=== PATIENT | male | born 1985 | race Hispanic/Latino ===

== ENCOUNTER 2018-03-31 10:09 | Inpatient (IN) | payer MEDICAID, OTHER ==
[2018-03-31 10:19] VITALS: BMI 21.1
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
--- NOTE | 2018-03-31 11:23 | RAD ---
Date of service: 03/31/2018 PROCEDURE: CHEST RADIOGRAPH, 1 VIEW HISTORY: r/o infiltrate COMPARISON: None available. FINDINGS: LUNGS: The lungs are well inflated and clear. No focal consolidation. PLEURA: No pneumothorax or pleural fluid seen. CARDIOVASCULAR: Normal. OSSEOUS STRUCTURES: No significant abnormalities. VISUALIZED UPPER ABDOMEN: Normal. OTHER FINDINGS: None. IMPRESSION: No active pulmonary disease.
[2018-03-31 11:35] LABS: BASO # 0.03 K/mm3 (0.0-2.0); BASO % 0.5 % (0.0-3.0); EOS # 0.4 (0.0-0.7); EOS % 6.3 % (1.5-5.0); GRAN # 3.81 (1.4-6.5); GRAN % 64.5 % (50.0-68.0); HEMOGLOBIN 14.1 g/dL (14.0-18.0); LYMPH % 16.8 % (22.0-35.0); MEAN CELL VOLUME 88.6 fl (80.0-105.0); MEAN CORPUSCULAR HEMOGLOBIN 32.1 pg (25.0-35.0); MEAN CORPUSCULAR HGB CONC 36.2 g/dl (31.0-37.0); MEAN PLATELET VOLUME 8.8 fl (7.0-11.0); MONO # 0.7 (0.1-0.6); MONO % 11.9 % (1.0-6.0); RBC 4.39 10^6/uL (3.5-6.1); RED CELL DISTRIBUTION WIDTH 11.9 % (11.5-14.5); WHITE BLOOD COUNT 5.9 10^3/ul (4.5-11.0)
[2018-03-31 11:40] LABS: ACETAMINOPHEN < 10.0 ug/ml (10.0-20.0); ALB/GLOB RATIO 1.5 (1.1-1.8); ALBUMIN 4.2 g/dL (3.0-4.8); ALT/SGPT 41 U/L (7-56); AST/SGOT 39 U/L (17-59); BLOOD UREA NITROGEN 19 mg/dL (7-21); CALCIUM 9.3 mg/dL (8.4-10.5); GFR AFRICAN-AMERICAN > 60; GFR NON-AFRICAN AMERICAN > 60; SALICYLATE < 1 mg/dL (2.0-20.0)
[2018-03-31 12:17] LABS: URINE BILIRUBIN NEGATIVE (NEGATIVE); URINE BLOOD NEGATIVE (NEGATIVE); URINE GLUCOSE (UA) NEGATIVE (NEGATIVE); URINE LEUKOCYTE ESTERASE NEGATIVE Leu/uL (NEGATIVE); URINE PROTEIN TRACE mg/dL (<30 mg/dL); URINE UROBILINOGEN 0.2 E.U./dL (<1 E.U./dL)
[2018-03-31 12:19] LABS: URINE APPEARANCE CLEAR (CLEAR); URINE COLOR YELLOW (YELLOW)
[2018-03-31 12:27] LABS: URINE BACTERIA FEW (NEG); URINE EPITHELIAL CELLS 0 - 2 /hpf (0-5); URINE RBC 0 - 2 /hpf (0-2); URINE WBC 0 - 2 /hpf (0-6)
[2018-03-31 12:44] LABS: BARBITURATES, UR NEGATIVE (NEGATIVE); BENZODIAZEPINES, UR NEGATIVE (NEGATIVE); OPIATES, UR NEGATIVE (NEGATIVE); PHENCYCLIDINE, UR NEGATIVE (NEGATIVE)
[2018-03-31 13:00] VITALS: O2SAT 95
--- NOTE | 2018-03-31 16:11 | PCM.BM ---
<Royce Thompson - Last Filed: 03/31/18 16:09> Treatment Plan Problems - Problems identified on initial assessmt Altered Thought Process Date Initiated: 03/31/18 Time Initiated: 16:10 Assessment reference: NA Status: Active Priority: 1 Inneffective Impulse Control Date Initiated: 03/31/18 Time Initiated: 16:11 Assessment reference: NA Status: Active Priority: 2 Altered Sleep Patterns Date Initiated: 03/31/18 Time Initiated: 16:11 Assessment reference: NA Status: Active Priority: 3 Treatment assets and liabiliti Patient Assests: cooperative, insightful, cognitively intact <Miracle Gonzales - Last Filed: 04/01/18 12:57> - Diagnosis (1) Bipolar disorder, curr episode mixed, severe, with psychotic features Status: Acute Interventions: 04/01/18 13:00 Psychoeducation Psychopharmacology/adjustment of medications as needed/ monitoring possible side effects Monitor blood level of mood stabilizers Evaluate pt on daily basis Compliance with medications and follow up appointments Suicide and homicide risk assessment and prevention, coping strategies, safety plan Relapse prevention Reduction of symptoms Improve functional status Family involvement As outpatient: cognitive behavioral therapy (2) Cannabis abuse Status: Acute Interventions: 04/01/18 13:00 Maintaining sobriety Relapse prevention Possible rehabilitation Motivational interviewing 12-step programs: AA meetings <Gretchen Townsend - Last Filed: 04/01/18 15:54> Family Contact Family involvement: Family/SO is involved Family contact: Patient agrees to contact
--- NOTE | 2018-03-31 16:35 | CARD ---
APPROVED REPORT Date of service: 03/31/2018 EKG Measurement Heart [id number] <Conclusion> Normal sinus rhythm Normal ECG
[2018-04-01 07:41] LABS: GLUCOSE,FASTING 98 mg/dL (65-110); HDL CHOLESTEROL 37 mg/dL (29-60)
[2018-04-01 07:51] LABS: LDL CHOLESTEROL 70 mg/dL (0-129)
[2018-04-01 07:54] LABS: FREE T4 1.11 ng/dL (0.78-2.19)
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
[2018-04-01] MEDS ORDERED: guaiFENesin DM 200 mg-20 mg/10 ml UD PO PRN (14:26)
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
[2018-04-01] MEDS: Albuterol 0.083% Inhal Sol (2.5 mg/3 mL) UD INH SCH ×2 (15:19→20:04)
[2018-04-01] MEDS: Budesonide 0.5 mg/2 ml Inhal Susp UD IH SCH (20:04)
[2018-04-02] MEDS: Albuterol 0.083% Inhal Sol (2.5 mg/3 mL) UD INH SCH (07:16)
[2018-04-02] MEDS: Budesonide 0.5 mg/2 ml Inhal Susp UD IH SCH ×2 (07:16→20:36)
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
[2018-04-02] MEDS: Albuterol 0.083% Inhal Sol (2.5 mg/3 mL) UD INH PRN (20:36)
[2018-04-03] MEDS: Budesonide 0.5 mg/2 ml Inhal Susp UD IH SCH ×2 (08:15→20:29)
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
[2018-04-03] MEDS: Albuterol 0.083% Inhal Sol (2.5 mg/3 mL) UD INH PRN (20:29)
[2018-04-04] MEDS: Albuterol 0.083% Inhal Sol (2.5 mg/3 mL) UD INH PRN ×2 (07:59→20:12)
[2018-04-04] MEDS: Budesonide 0.5 mg/2 ml Inhal Susp UD IH SCH ×2 (07:59→20:13)
--- NOTE | 2018-04-04 09:16 | PCM.PYCHPN ---
Psychiatric Progress Note - Psychiatric Progress Note Patient seen today, length of contact: 30 minutes Problems Identified/Issues Discussed: I reviewed assessment and recent notes. Patient submitted a 48 hour letter yesterday at 21:52. I met with him in the dayroom and he appears internally preoccupied though responsive to my questioning. Affect is blunt and he flatly reports that he is "doing better, calm, good". Denies pain, discomfort or side effects from medications. I agree with staff, he is oddly related and he also appears guarded. It is difficult to gauge his thought process and I feel that he remains unpredictable based HPI, behavior immediately prior to admission, staff notes and my own superficial and inconclusive interview this morning. Diagnostic Results: Rule out schizoaffective disorder Rule out bipolar disorderwith psychosis Substance-induced psychosis Medication Change: Yes (as increased yesterday) Medical Record Reviewed: Yes Mental Status Examination - Cognitive Function Orientation: Person, Place, Situation, Time Memory: Impaired Attention: Poor Concentration: Poor Association: Loose Fund of Knowledge: Poor - Mood Mood: Neutral - Affect Affect: Blunted - Speech Speech: Soft - Formal Thought Process Formal Thought Process: Delusions (grandeur), Loosening of associations, Circumstantial, Other (disorganized thought process) - Suicidal Ideation Suicidal Ideation: No - Homicidal Ideation Homicidal Ideation: No Goal/Treatment Plan - Goal/Treatment Plan Need for Continued Stay: Remain at risks for inpatient hospitalization, Severe depression anxiety, Discharge may exacerbated symptoms, Severe functional impairment Progress Toward Problem(s) and Goals/Treatment Plan: * c/w current tx and plan * No new weekend lab results thus far * Vitals reviewed and noted below: Selected Entries 04/03/18 04/03/18 06:59 16:00 Temperature 97.6 F Pulse Rate 59 L 80 Respiratory 20 Rate Blood Pressure 90/62 L 114/52 L * Patient submitted a 48 hour letter yesterday at 21:52. I feel that patient remains unpredictable based HPI, bizarre behavior immediately prior to admission , staff notes and interview this morning. Will request for [facility] screener to evaluate patient for involuntary commitment. Estimated Date of D/C: 04/17/18
[2018-04-05] MEDS: Albuterol 0.083% Inhal Sol (2.5 mg/3 mL) UD INH PRN ×2 (07:45→20:18)
[2018-04-05] MEDS: Budesonide 0.5 mg/2 ml Inhal Susp UD IH SCH ×2 (07:45→20:18)
--- NOTE | 2018-04-05 09:21 | PCM.PYCHPN ---
Psychiatric Progress Note - Psychiatric Progress Note Patient seen today, length of contact: 30 minutes Problems Identified/Issues Discussed: I reviewed recent notes. Patient submitted a 48 hour letter on Friday at 21:52 and was interviewed by [facility] screener on Friday who determined patient met criteria for involuntary commitment. I met with patient again in the dayroom and he appears internally preoccupied though responsive to my questioning. Affect shows a little more reactivity however, overall his affect is flat, odd, guarded and very calm. He continues to report that he feels "good improved". Denies pain, discomfort or side effects from medications. Patient is aware of pending [facility] transfer and took the news well. There have been no behavioral issues over the weekend. Diagnostic Results: Rule out schizoaffective disorder Rule out bipolar disorderwith psychosis Substance-induced psychosis Medication Change: Yes (as increased yesterday) Medical Record Reviewed: Yes Mental Status Examination - Cognitive Function Orientation: Person, Place, Situation, Time Memory: Impaired Attention: Poor Concentration: Poor Association: Loose Fund of Knowledge: Poor - Mood Mood: Neutral - Affect Affect: Blunted - Speech Speech: Soft - Formal Thought Process Formal Thought Process: Delusions (grandeur), Loosening of associations, Circumstantial, Other (disorganized thought process) - Suicidal Ideation Suicidal Ideation: No - Homicidal Ideation Homicidal Ideation: No Goal/Treatment Plan - Goal/Treatment Plan Need for Continued Stay: Remain at risks for inpatient hospitalization, Severe depression anxiety, Discharge may exacerbated symptoms, Severe functional impairment Progress Toward Problem(s) and Goals/Treatment Plan: * c/w current tx and plan * No new weekend lab results * Vitals reviewed and noted below: Selected Entries 04/04/18 04/04/18 07:00 16:43 Temperature 97.2 F L Pulse Rate 72 91 H Respiratory 17 Rate Blood Pressure 112/70 106/75 * Patient submitted a 48 hour letter on Friday at 21:52. [facility] screener evaluated patient on Friday and determined he meets criteria for involuntary admission to their unit. Patient is pending transfer to [facility]. Estimated Date of D/C: 04/17/18
[2018-04-06] MEDS: Budesonide 0.5 mg/2 ml Inhal Susp UD IH SCH ×2 (08:08→20:32)
[2018-04-06] MEDS: Albuterol 0.083% Inhal Sol (2.5 mg/3 mL) UD INH PRN (08:08)
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
[2018-04-07 06:52] VITALS: RESP 18; TEMP 97.5
[2018-04-07] MEDS: Budesonide 0.5 mg/2 ml Inhal Susp UD IH SCH ×2 (08:06→20:39)
[2018-04-07] MEDS: Albuterol 0.083% Inhal Sol (2.5 mg/3 mL) UD INH PRN ×2 (08:06→20:39)
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
[2018-04-07 18:36] VITALS: BP 115/68; PULSE 78
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
== END 2018-04-08 00:14 | DRG 430 ==
LOC: ED 10:09 → ERH 12:52 → PSYC 13:47
PROVIDERS: ADMIT Psychiatry & Neurology Psychiatry; ATTEND Psychiatry & Neurology Psychiatry
DX: F31.9 Bipolar disorder, unspecified (principal); F25.9 Schizoaffective disorder, unspecified; F41.9 Anxiety disorder, unspecified; F10.10 Alcohol abuse, uncomplicated; F12.159 Cannabis abuse with psychotic disorder, unspecified; F17.200 Nicotine dependence, unspecified, uncomplicated; J45.20 Mild intermittent asthma, uncomplicated; S01.111A Laceration without foreign body of right eyelid and periocular area, initial encounter; S81.812A Laceration without foreign body, left lower leg, initial encounter; S81.811A Laceration without foreign body, right lower leg, initial encounter; S91.312A Laceration without foreign body, left foot, initial encounter; S91.311A Laceration without foreign body, right foot, initial encounter; Z79.899 Other long term (current) drug therapy; Z91.14 Patient's other noncompliance with medication regimen; X58.XXXA Exposure to other specified factors, initial encounter